=== PATIENT | male | born 1975 | race Caucasian/White ===

== ENCOUNTER 2021-08-05 03:00 | Emergency (ER) | payer MEDICARE, SELFPAY ==
[2021-08-05 03:10] VITALS: BP 121/82; PULSE 103; RESP 18; TEMP 37; O2SAT 96; BMI 24.7
[2021-08-05 03:15] VITALS: PULSE 90; PULSE 91; O2SAT 98
--- NOTE | 2021-08-05 03:16 | XR_ITS ---
PROCEDURE INFORMATION: Exam: XR Chest Exam date and time: 08/05/2021 3:29 AM Age: 46 years old Clinical indication: Shortness of breath; Additional info: SOA TECHNIQUE: Imaging protocol: XR of the chest. Views: 2 views. COMPARISON: No relevant prior studies available. FINDINGS: Lungs: There is a 14 mm rounded opacity seen in the left lung base. No infiltrates are identified. Pleural spaces: Unremarkable. No pleural effusion. No pneumothorax. Heart/Mediastinum: Unremarkable. No cardiomegaly. Bones/joints: Unremarkable. IMPRESSION: 14 mm density left lung, while this may represent a small focal infiltrate or other benign process, CT is recommended to exclude a neoplasm in this location.
--- NOTE | 2021-08-05 03:16 | CT_ITS ---
PROCEDURE INFORMATION: Exam: CTA Chest With Contrast Exam date and time: 08/05/2021 3:40 AM Age: 46 years old Clinical indication: Shortness of breath; Additional info: SOA TECHNIQUE: Imaging protocol: Computed tomographic angiography of the chest with contrast. 3D rendering (Not supervised by radiologist): MIP and/or 3D reconstructed images were created by the technologist. Radiation optimization: All CT scans at this facility use at least one of these dose optimization techniques: automated exposure control; mA and/or kV adjustment per patient size (includes targeted exams where dose is matched to clinical indication); or iterative reconstruction. Contrast material: ISOVUE 370; Contrast volume: 70 ml; Contrast route: INTRAVENOUS (IV); COMPARISON: CR XR CHEST 2V 08/05/2021 3:29 AM FINDINGS: Pulmonary arteries: Normal. No pulmonary emboli. Aorta: Unremarkable. No aortic aneurysm. No aortic dissection. Lungs: There is some dependent atelectasis present. Some linear atelectasis is also seen in both the lingula in the right middle lobe. Pleural spaces: Unremarkable. No pneumothorax. No pleural effusion. Heart: Unremarkable. No cardiomegaly. No pericardial effusion. Lymph nodes: Unremarkable. No enlarged lymph nodes. Gallbladder and bile ducts: The patient is status post cholecystectomy. A granuloma is seen in the right mid chest measuring 6 mm. Bones/joints: Unremarkable. No acute fracture. Soft tissues: Unremarkable. IMPRESSION: 1. No evidence of pulmonary embolus. 2. Bibasilar atelectasis and some linear scarring is noted.
[2021-08-05 03:24] LABS: Coronavirus 19, PCR Not Detected (NotDetected); Influenza A, PCR Not Detected (NotDetected); Influenza B, PCR Not Detected (NotDetected)
[2021-08-05 03:28] LABS: Basophils # 0.2 K/mm3 (0-0.2); Basophils % 1.5 % (0.1-2.0); Eosinophils # 0.1 K/mm3 (0.0-0.4); Eosinophils % 1.2 % (0.1-12.0); Hemoglobin 16.9 g/dL (14.1-18.0); Lymphocytes # 2.3 K/mm3 (0.7-4.5); Lymphocytes % 23.4 % (10-50); Mean Corpuscular HGB Conc 33.1 g/dL (31.8-35.4); Mean Corpuscular Hemoglobin 32.2 pg (27.0-31.2); Mean Corpuscular Volume 97.1 fl (80-94); Mean Platelet Volume 7.9 fl (7.4-10.4); Monocytes # 1.1 K/mm3 (0.1-1.0); Monocytes % 10.8 % (1.7-9.3); Neutrophils # 6.1 K/mm3 (1.8-7.8); Neutrophils % 63.1 % (37.0-80.0); Platelet Count 273 K/mm3 (142-424); Red Blood Count 5.25 M/mm3 (4.60-6.20); Red Cell Distribution Width 13.7 % (11.5-17.5); White Blood Count 9.7 K/mm3 (4.8-10.8)
[2021-08-05 03:37] LABS: Alanine Aminotransferase 36 U/L (12-78); Albumin Level 4.8 g/dl (3.5-5.0); Albumin/Globulin Ratio 1.7 (1.1-1.8); Alkaline Phosphatase 47 U/L (38-126); Anion Gap 11.4 mEq/L (5-15); Aspartate Amino Transferase 33 U/L (17-59); Bilirubin,Total 0.5 mg/dl (0.2-1.3); Blood Urea Nitrogen 10 mg/dl (9-20); Calcium 9.4 mg/dl (8.4-10.2); Carbon Dioxide 29 mmol/L (22.0-30.0); Chloride 103 mmol/L (98-107); Creatinine Clearance Estimated 145 mL/min (50-200); Estimated Glomerular Filt Rate 123 ml/min (>60); GFR (African American) 148 ML/MIN (>60); Globulin 2.8 g/dL (1.3-3.2); Glucose 94 mg/dl (74-100); Potassium 4.4 mmoL/L (3.5-5.1); Sodium 139 mmol/L (136-145); Total Protein,Serum 7.6 g/dl (6.3-8.2)
[2021-08-05 03:44] LABS: C-Reactive Protein 8.2 mg/L (0-4)
[2021-08-05 03:56] LABS: Procalcitonin 0.067 ng/mL (0.0-2.0)
[2021-08-05 04:00] LABS: Erythrocyte Sedimentation Rate 4 mm/hr (0-15)
--- NOTE | 2021-08-05 05:07 | [facility].EDSOB ---
ED Disposition Clinical Impression: Bronchitis Disposition: Home, Self-Care Condition on Discharge: Good Instructions: DI for Shortness of Breath Additional Instructions: use meds and see pcp next week Prescriptions: predniSONE [Prednisone 20mg Tab] 20 mg PO BID #10 tab Transmission Status: Pending to [facility] Azithromycin [Zithromax 250mg tab] 250 mg PO DIRECTED #6 tab Transmission Status: Pending to [facility] Referrals: Provider,Referral, [Primary Care Provider] - - Critical Care Critical Care Time: No Attestation: On 08/05/21, the high probability of a clinically significant, sudden or life threatening deterioration of the following system(s) required my full and direct attention, intervention and personal management. The time I documented below is in addition to time spent performing reported procedures but includes the following listed in this critical care notation. Medical Decision Making - Medical Records Medical records reviewed: Yes: I reviewed the patient's medical records. - Gabe Inquiry Pt receiving controlled substance: No Vital Signs: 08/05/21 03:10 08/05/21 03:15 Temperature 98.6 F Temperature Source Oral Pulse Rate 90 Pulse Rate [Apical] 103 H Respiratory Rate 18 Blood Pressure [Right Arm] 121/82 Blood Pressure Mean [Right Arm] 95 Blood Pressure Source [Right Arm] Automatic Cuff Blood Pressure Position [Right Arm] Sitting 02 Sat by Pulse Oximetry 96 98 Oxygen Delivery Method Room Air Room Air - Lab Data Lab results reviewed: Yes: I reviewed the patient's lab results. Lab Results 08/05/21 03:08: SARS-CoV-2 (PCR) Not detected, Influenza A Untype (PCR) Not detected, Influenza Type B (PCR) Not detected 08/05/21 03:15: WBC 9.7, RBC 5.25, Hgb 16.9, Hct 51.0, MCV 97.1 H, MCH 32.2 H, MCHC 33.1, RDW 13.7, Plt Count 273, MPV 7.9, Neut % (Auto) 63.1, Lymph % (Auto) 23.4, [place] % (Auto) 10.8 H, Eos % (Auto) 1.2, Baso % (Auto) 1.5, Neut # (Auto) 6.1, Lymph # (Auto) 2.3, [place] # (Auto) 1.1 H, Eos # (Auto) 0.1, Baso # (Auto) 0.2, ESR 4 08/05/21 03:15: Sodium 139, Potassium 4.4, Chloride 103, Carbon Dioxide 29, Anion Gap 11.4, BUN 10, Creatinine 0.70, Estimated Creat Clear 145, Estimated GFR 123, Est GFR ( Amer) 148, Glucose 94, Calcium 9.4, Total Bilirubin 0.5, AST 33, ALT 36, Alkaline Phosphatase 47, C-Reactive Protein 8.2 H, Total Protein 7.6, Albumin 4.8, Globulin 2.8, Albumin/Globulin Ratio 1.7, Procalcitonin 0.067 08/05/21 03:15: Troponin I < 0.01 Result diagrams: 08/05/21 03:15 08/05/21 03:15 Orders (Tests/Meds): ED MEDICATIONS Generic Name Dose Route Start Last Admin Trade Name Freq PRN Reason Stop Dose Admin Sodium Chloride 1,000 mls @ 999 mls/hr 08/05/21 03:15 08/05/21 03:20 Sod Chlor 0.9% 1000ml Bag IV 08/05/21 04:15 999 mls/hr .Q1H1M KIM Administration Discontinued Medications Generic Name Dose Route Start Last Admin Trade Name Freq PRN Reason Stop Dose Admin Albuterol/Ipratropium 3 ml 08/05/21 03:15 08/05/21 03:30 Ipratropium/Albuterol 3 Ml Neb IH 08/05/21 03:16 3 ml ONCE ONE Administration Iopamidol 70 ml 08/05/21 03:53 08/05/21 03:54 Iopamidol-370 (76%);100ml Bottle IV 08/05/21 03:54 70 ml ONCE ONE Administration Ketorolac Tromethamine 30 mg 08/05/21 03:15 08/05/21 03:21 Ketorolac 30mg/Ml Vial IV 08/05/21 03:16 30 mg ONCE ONE Administration Methylprednisolone Sodium Succinate 125 mg 08/05/21 03:15 08/05/21 03:21 Methylprednisolone Sod Succ 125mg Vial IV 08/05/21 03:16 125 mg ONCE ONE Administration Sodium Chloride 40 ml 08/05/21 03:53 08/05/21 03:54 0.9 % Sodium Chloride 50 Ml Vial IV 08/05/21 03:54 40 ml ONCE ONE Administration Sodium Chloride 10 ml 08/05/21 03:53 08/05/21 03:54 Sodium Chloride 0.9% 10ml Syr (Rad Only) IV 08/05/21 03:54 10 ml ONCE ONE Administration ORDERS Category Date Time Status Troponin I Q3H
[2021-08-05 05:32] LABS: Troponin I < 0.01 ng/ml (0.00-0.034)
[2021-08-05 06:07] VITALS: BP 121/73; PULSE 90; RESP 18; TEMP 37; O2SAT 98
== END 2021-08-05 06:09 | disposition home or self-care (01) ==
PROVIDERS: Emergency Provider Emergency Medicine
DX: J40 Bronchitis, not specified as acute or chronic (principal); R42 Dizziness and giddiness; R53.1 Weakness; Z20.822 Contact with and (suspected) exposure to COVID-19; F17.210 Nicotine dependence, cigarettes, uncomplicated; Z79.52 Long term (current) use of systemic steroids; Z79.899 Other long term (current) drug therapy; Z88.6 Allergy status to analgesic agent
CPT/HCPCS: 71046; 71275; 80053; 84145; 84484; 85025; 85651; 86140; 96361; 96374; 96375; 99285; C9803; Q9967; U0003; U0005